=== PATIENT | female | born 1990 | race Caucasian/White ===

== ENCOUNTER 2018-01-01 13:03 | Inpatient (IN) | END 2018-01-04 16:35 | disposition home or self-care (01) | DRG 831 ==

== ENCOUNTER 2018-01-06 10:10 | Outpatient (CLI) | END 2018-01-06 13:29 | disposition home or self-care (01) ==

== ENCOUNTER 2018-01-08 09:53 | Inpatient (IN) | END 2018-01-13 13:38 | disposition home or self-care (01) | DRG 807 ==